=== PATIENT | female | born 2000 | race African-American/Black ===

== ENCOUNTER 2022-09-23 20:11 | Emergency (ER) | payer MEDICAID, OTHER ==
[2022-09-23] MEDS ORDERED: Ketorolac Tromethamine 30 MG/ML VIAL ONE (20:40)
[2022-09-23] MEDS ORDERED: Benzocaine 20% Spray 60 ML CAN TOP SCH (20:45)
== END 2022-09-23 21:29 | disposition home or self-care (01) ==
LOC: CSHERS 20:11
DX: J02.9 Acute pharyngitis, unspecified (principal)
CPT/HCPCS: 87081; 87430; 96372; 99283; J1885